=== PATIENT | male | born 1940 | race Caucasian/White ===

== ENCOUNTER → 2017-03-26 | Outpatient (CLI) | payer MEDICARE, BC | END | disposition home or self-care (01) | LOC: HKI 10:43 | PROVIDERS: ATTEND Orthopaedic Surgery | DX: Z47.89 Encounter for other orthopedic aftercare (principal); S72.141D Displaced intertrochanteric fracture of right femur, subsequent encounter for closed fracture with routine healing ==

== ENCOUNTER → 2017-04-23 | Outpatient (CLI) | payer MEDICARE, BC ==
--- NOTE | 2017-04-23 13:30 | RADRPT ---
PROCEDURE: XR pelvis/right hip. CLINICAL INDICATION: Hip pain TECHNIQUE: AP pelvis/AP and lateral right hip views performed COMPARISON: No prior studies are available for comparison. FINDINGS: ORIF of healing comminuted right intertrochanteric fracture with an intramedullary florencio and a dynamic compression pin. Alignment is anatomic There is mild to moderate bilateral hip osteoarthrosis. This is associated with joint space narrowin g, subchondral sclerosis and osteophytosis. There is normal mineralization. No fractures or osseou s lesions are identified. The soft tissues are unremarkable. There is extensive arterial vascular c alcification. IMPRESSION: ORIF of healing comminuted right intertrochanteric fracture with an intramedullary florencio and a dynamic compression pin Mild to moderate bilateral hip osteoarthrosis. RPTAT: [facility] .Shahram Ridley MD, Date Time Electronically viewed and signed by .Shahram Ridley MD, on 04/23/2017 13:30 .B/
--- NOTE | 2017-04-23 13:32 | RADRPT ---
PROCEDURE: XR right femur. CLINICAL INDICATION: Intertrochanteric fracture TECHNIQUE: AP and lateral views of the lower femur performed. COMPARISON: Pelvis/right hip 04/23/2017 FINDINGS: ORIF of right intertrochanteric fracture with a locking intramedullary florencio and a dynamic compression pin. There is otherwise normal mineralization, architecture and alignment. No osseous lesion is identifie d. The joints are unremarkable. The soft tissues are unremarkable. There is arterial vascular calcif ication. IMPRESSION: ORIF of right intertrochanteric fracture with a locking intramedullary florencio and a dynamic compression pin RPTAT: [facility] .Shahram Ridley MD, MD Date Time Electronically viewed and signed by .Shahram Ridley MD, on 04/23/2017 13:32 .B/
== END | disposition home or self-care (01) ==
LOC: HKI 09:17
PROVIDERS: ATTEND Orthopaedic Surgery
DX: Z47.89 Encounter for other orthopedic aftercare (principal); S72.141D Displaced intertrochanteric fracture of right femur, subsequent encounter for closed fracture with routine healing
CPT/HCPCS: 73502; 73552; G0463

== ENCOUNTER → 2017-06-02 | Outpatient (CLI) | payer MEDICARE, BC ==
--- NOTE | 2017-06-02 14:22 | RADRPT ---
PROCEDURE: XR LEFT HIP. CLINICAL INDICATION: Right hip pain. TECHNIQUE: 3 views of the left hip were performed. COMPARISON: 04/23/2017 FINDINGS: Since the prior examination, there has been further healing of the previously described intertrochan teric fracture affixed by an intramedullary florencio and dynamic compression screw. No evidence for hard bailey migration or fracture. There is heterotopic ossification at the fracture site. The fracture i s healing in good position and alignment. No acute fractures seen. IMPRESSION: 1. Good position and alignment of the healing right intertrochanteric fracture status post ORIF. 2. No acute fracture is seen. RPTAT: XX .Daren Palencia MD, Date Time Electronically viewed and signed by .Daren Palencia MD, on 06/02/2017 14:22 .T/
--- NOTE | 2017-06-02 14:23 | RADRPT ---
PROCEDURE: XR FEMUR. CLINICAL INDICATION: Pain. TECHNIQUE: AP and lateral views of the right distal femur were obtained. COMPARISON: No prior studies are available for comparison. FINDINGS: Images were obtained of the mid and distal femur. The distal aspect of an intramedullary florencio is vis ualized in there is no evidence for loosening or fracture of the hardware. No acute osseous fractur es seen. No radiopaque foreign bodies identified. Atherosclerotic calcifications are seen. IMPRESSION: 1. Appropriate appearance to intramedullary florencio of the distal right femur. 2. No evidence for hardware malfunction. 3. No evidence for acute osseous fracture. 4. Atherosclerosis. RPTAT: XX .Daren Palencia MD, Date Time Electronically viewed and signed by .Daren Palencia MD, on 06/02/2017 14:23 .T/
== END | disposition home or self-care (01) ==
LOC: HKI 09:32
PROVIDERS: ATTEND Orthopaedic Surgery
DX: Z47.89 Encounter for other orthopedic aftercare (principal); S72.141D Displaced intertrochanteric fracture of right femur, subsequent encounter for closed fracture with routine healing
CPT/HCPCS: 73502; 73552